=== PATIENT | female | born 1945 | race African-American/Black ===

== ENCOUNTER 2019-09-28 13:00 | Inpatient (IN) | payer MEDICARE ==
[~2019-09-28] VITALS: Ht 172.7 cm; Wt 78.1 kg
[2019-10-04] MEDS ORDERED: GLUCOPHAGE XR750 MG PO (10:46)
[2019-10-04] MEDS ORDERED: LIPITOR20 MG PO (10:47)
[2019-10-04] MEDS ORDERED: VITAMIN D5000 UNI1 (10:48)
[2019-10-04 12:21] LABS: CALCIUM 9.1 mg/dL (8.5-10.1); CARBON DIOXIDE 28.6 mmol/L (21.0-32.0); CREATININE - SERUM 1.2 mg/dL (0.6-1.3); POTASSIUM - SERUM 4.6 mmol/L (3.5-5.1)
[2019-10-05] VITALS (9 sets, daily range): BP systolic 121–154; BP diastolic 54–87; BMI 24.0
[2019-10-05] MEDS ORDERED: NEURONTIN 300300 MG PO (05:47)
[2019-10-05] MEDS ORDERED: HYDROCODON-ACE1 EA10 PO (05:48)
[2019-10-05] MEDS ORDERED: HYDRALAZINE HCL25 MG PO (05:49)
[2019-10-05] MEDS ORDERED: LISINOPRIL-HCT1 EAC8 PO (05:52)
[2019-10-05] MEDS ORDERED: MUPIROCIN22 GM TOPICAL (05:53)
[2019-10-05] MEDS ORDERED: ZOCOR40 MG PO (05:53)
[2019-10-05] MEDS ORDERED: KENALOG 0.1 % 115 GM (05:54)
[2019-10-05] MEDS ORDERED: KENALOG 0.1 % 115 GM TOPICAL (05:55)
[2019-10-05] MEDS ORDERED: TOBREX5 ML EACH EYE (05:56)
[2019-10-05] MEDS ORDERED: MAGNESIUM OXID250 MG PO (05:57)
[2019-10-05] MEDS ORDERED: BAYER CHEWABLE81 MG PO (05:58)
[2019-10-05 07:23] LABS: HEMATOCRIT 30.5 % (36.0-48.0); HEMOGLOBIN 9.7 g/dL (12-16); LYMPHOCYTES 49.8 % (15-50); MCH 28.4 pg (26.0-34.0); MCHC 31.8 g/dL (31.0-37.0); MCV 89.4 fL (80.0-100.0); MEAN PLATELET VOLUME 9.5 fL (7.4-10.4); NEUTROPHILS 40.9 % (40-80); PLATELET COUNT 248 10x3/uL (130-400); RBC 3.41 10x6/uL (4.00-5.40); RDW 12.8 % (11.5-14.5); WBC 6.8 10x3/uL (4.8-10.8)
--- NOTE | 2019-10-05 09:44 | NUR ---
PATIENT HAD CVL PLACED BY DR FRANCO WHEN BROUGHT IN TO ROOM, PATIENT POSITIONED IN REYNA HEADREST BY DR HALE ALL AREAS PADDED SECURED WITH NO IMPINGEMENTS, TWORLOS.
--- NOTE | 2019-10-05 12:50 | NUR ---
PT RECEIVED FROM OR AT THIS TIME. VSS. PT HR 85 NSR O2 SAT 94% VIA RA. BP 148/64 VIA R RADIAL A LINE WITH GOOD WAVEFORM. PT SEDATED UNABLE TO FOLLOW SIMPLE COMMANDS, WILL WAKE UP TO NAME. NURSE AT BEDSIDE. NO FAMILY PRESENT IN WAITING AREAS. WILL CONTINUE TO MONITOR
--- NOTE | 2019-10-05 19:20 | NUR ---
RECEIVED CARE OF PT, ASSESSMENT PER FLOWSHEET. PT ALERT, DISORIENTED TO TIME ONLY, HR SR ON CM, RT RADIAL A-LINE FLUSHED AND ZEROED-GOOD WAVE FORM NOTED, PANTOGRAPH II ENGRAVER BUTTON AND CALL LIGHT IN REACH, BED ALARM ON. SMALL AMT OF DRIED BLOOD NOTED ON CRANIAL DRESSING-MD AWARE, VSS.
--- NOTE | 2019-10-05 21:15 | NUR ---
PT GRANDSON IN FOR VISITATION, ALL QUESTIONS ANSWERED, PT CONVERSING IN NO APPARENT DISTRESS.
--- NOTE | 2019-10-05 23:15 | NUR ---
REASSESSMENT PER FLOWSHEET, NO SIGNIFICANT CHANGES NOTED AT THIS TIME. CONT POC
[2019-10-06] VITALS (18 sets, daily range): BP systolic 99–157; BP diastolic 52–96
--- NOTE | 2019-10-06 01:30 | NUR ---
PT RESTING IN BED WITH EYES CLOSED, VSS, CONT TO MONITOR.
--- NOTE | 2019-10-06 05:53 | NUR ---
PT RESTING IN BED WITH EYES CLOSED, VSS, CONT TO MONITOR.
--- NOTE | 2019-10-06 07:42 | NUR ---
UP IN BED AWAKE AT THIS TIME. DENIES ANY NEEDS. VSS. PT USES CLINIC MGR BUTTON FOR PAIN. NO ACUTE DISTRESS NOTED. WILL CONTINUE PLAN OF CARE.
--- NOTE | 2019-10-06 09:42 | NUR ---
FAMILY AT BEDSIDE. UPDATES PROVIDED. VSS. WILL CONTINUE PLAN OF CARE.
--- NOTE | 2019-10-06 11:43 | NUR ---
NO ACUTE DISTRESS NOTED. VSS. WILL CONTINUE PLAN OF CARE.
--- NOTE | 2019-10-06 13:27 | NUR ---
DR HALE HERE TO SEE PT, ORDERS RECIEVED ON PT. HE STATED TO KEEP PT IN ICU. NOTIFIED PHYSICIAN OF PTS LT SHOULDER DISCOMFORT, HE STATED HE IS AWARE OF THIS AND THE SHOULDER IS BETTER TODAY. VSS. NO ACUTE DISTRESS NOTED. WILL CONTINUE PLAN OF CARE.
--- NOTE | 2019-10-06 15:20 | NUR ---
NO ACUTE DISTRESS NOTED. LYING IN BED AWAKE AT THIS TIME. DENIES ANY NEEDS. VSS. WILL CONTINUE PLAN OF CARE.
--- NOTE | 2019-10-06 16:32 | NUR ---
UP IN BED AWAKE AT THIS TIME. VSS. NO ACUTE DISTRESS NOTED. PT DENIES ANY NEED. CALL LIGHT IN REACH. EDITORIAL PROJECT MANAGER BUTTON IN REACH. WILL CONTINUE PLAN OF CARE.
--- NOTE | 2019-10-06 19:41 | NUR ---
SHIFT ASSESSMENT COMPLETED AT THIS TIME. PATIENT STATES SHE CAN'T MOVE HER LEFT ARM DUE TO A FALL THAT OCCURED BEFORE SHE CAME TO THE HOSPITAL. SHE WAS AT HER DAUGHTERS HOUSE AND SHE FELL REQUIRING PARAMEDICS TO HAVE TO COME OUT AND PICK HER UP. PAGED DR HALE AT THIS TIME REGARDING INFORMATION OBTAINED. VSS CPOC PT DENIES NEEDS
--- NOTE | 2019-10-06 20:48 | NUR ---
[facility] CALLED BACK, STATED THEY HAVE BEEN TRYING TO REACH DR PACE AND ARE UNSUCCESFUL, THIS IS A NON EMERGENT ISSUE, WILL PASS INFORMATION TO DAY SHIFT
--- NOTE | 2019-10-06 21:23 | NUR ---
DR HALE RETURNED CALL, NEW ORDERS RECEIVED FOR THE AM. WILL SEE PATIENT TOMORROW
--- NOTE | 2019-10-06 22:30 | NUR ---
DRESSING CHANGE COMPLETED, SCANT MAROON BLOOD NOTED ON DRESSING. A-LINE D/C AT THIS TIME CATH INTACT. PATIENT TOLERATED WELL. CHG BATH COMPLETED, ICE APPLIED TO LEFT SHOULDER AREA. PT EDUCATION PROVIDED REGARDING RELIEVING PRESSURE TO PREVENT BEDSORES. VSS CPOC
--- NOTE | 2019-10-06 23:25 | NUR ---
REASSESSMENT COMPLETED SEE FLOWSHEET
[2019-10-07] VITALS (24 sets, daily range): BP systolic 93–136; BP diastolic 46–66
--- NOTE | 2019-10-07 01:15 | NUR ---
pt resting comfortably at this time
--- NOTE | 2019-10-07 03:26 | NUR ---
REASSESSMENT COMPLETED SEE FLOWSHEET
--- NOTE | 2019-10-07 06:28 | NUR ---
PT RESTING COMFORTABLY RECEIVED DRINK PER REQUEST. VSS CPOC
--- NOTE | 2019-10-07 08:19 | NUR ---
NOTED CONSULT FOR DR MAURICIO FOR PT C/O LT SHOOULDER PAIN WITH LIMITED RANGE OF MOTION, HOWEVER PT HAS MORE MOVEMENT WITH SHOULDER THAN NOTED YESTERDAY. DR MAURICIO HAS BEEN PAGED AND NOTIFIED OF THIS CONSULT, STATED [facility] IS ROUNDING FOR HIM TODAY. VSS. WILL CONTINUE PLAN OF CARE.
--- NOTE | 2019-10-07 10:49 | NUR ---
AWAKE IN ROOM WATCHING TV AT THIS TIME. VSS. NO ACUTE DISTRESS NOTED. CALL LIGHT IN REACH. WILL CONTINUE PLAN OF CARE.
--- NOTE | 2019-10-07 12:49 | NUR ---
SITTING UP IN CHAIR EATING LUNCH AT THIS TIME. VSS. NO ACUTE DISTRESS NOTED. DENIES ANY NEEDS. WILL CONTINUE PLAN OF CARE.
--- NOTE | 2019-10-07 14:42 | NUR ---
UP IN CHAIR. DENIES ANY NEEDS. VSS. NO ACUTE DISTRESS NOTED. WILL CONTINUE PLAN OF CARE.
--- NOTE | 2019-10-07 15:12 | NUR ---
PT AT REASSESSMENT IS UNABLE TO SQUEEZE LT HAND OR MOVE LT ARM. PT WAS ABLE TO LOAN PROCESSING SUPERVISOR WITH LT ARM DURING AM ASSESSMENTS. PT SCHEDULED FOR MRI, DR HALE STATES IS OKAY FOR PT TO GO TO MRI, DR HALE ALSO NOTIFIED THAT PT NOW UNABLE TO MOVE LT ARM.
--- NOTE | 2019-10-07 15:39 | NUR ---
MRI CALLED STATING THEY WOULD BE BY SHORTLY TO SEE PT.
--- NOTE | 2019-10-07 16:01 | NUR ---
PT LEFT FOR MRI AT THIS TIME WITH ASSIST FROM MRI AND NURSING STAFF. VSS. NO ACUTE DISTRESS NOTED. ASSISTED VIA WHEEL CHAIR. WILL CONTINUE PLAN OF CARE.
--- NOTE | 2019-10-07 16:40 | NUR ---
RETURNED WITH PT FROM MRI, ORDERS RECIEVED FROM DR HALE. UPDATES PROVIDED TO PT, PT ASSISTED BACK TO BED. DENIES ANY NEEDS. WILL CONTINUE PLAN OF CARE.
--- NOTE | 2019-10-07 17:41 | NUR ---
DR HALE HERE TO SEE PT, ORDERS RECIEVED. WHEN PHYSICIAN WAS AT BEDSIDE NOTED PT ABLE TO SLIGHTLY OPEN AND CLOSE FINGERS. VSS. WILL CONTINUE PLAN OF CARE.
--- NOTE | 2019-10-07 22:49 | NUR ---
1900-C/O SEVERE LEFT SHOULDER PAIN. MORPHINE LUDLOW MACHINE OPERATOR IN LAP. GAVE TO PATIENT ON REINFORCED EDUCATION IN LUDLOW MACHINE OPERATOR BUTTON. 2099- REPOSITIONED. STATES THAT HELPS WITH THE SHOULDER PAIN
--- NOTE | 2019-10-07 23:07 | NUR ---
REASSESSMENT COMPLETED. EYES CLOSED, WAKES TO VOICE. VSS.
[2019-10-08] VITALS (24 sets, daily range): BP systolic 95–155; BP diastolic 45–71; Ht 172.7 cm; Wt 78.1 kg
--- NOTE | 2019-10-08 01:00 | NUR ---
EYES CLOSED, WAKES TO VOICE. VSS. C/O ITCHING TO BACK TO RIGHT ARM. REPOSITIONED
--- NOTE | 2019-10-08 03:26 | NUR ---
REASSESSMENT COMPLETED. NO CHANGES. C/O ITCHING
--- NOTE | 2019-10-08 05:06 | NUR ---
EYES CLOSED, WAKES TO VOICE. VSS. NO CHANGES REPOSITIONED
--- NOTE | 2019-10-08 06:28 | NUR ---
CHG BATH GIVEN WITH COMPLETE LINEN CHANGE
--- NOTE | 2019-10-08 07:30 | NUR ---
REPORT RECEIVED. PT ALERT AND ORIENTED. INCISION TO RIGHT SIDE OF HEAD WITH DRESSING C/D/I. PT IS ON ROOM AIR. SHE HAS A ZHOU. SHE HAS A LEFT SUBCLAVIAN CENTRAL LINE WITH 1/2NS INFUSING AND A MORPHINE ACID PURIFICATION EQUIPMENT OPERATOR. PAIN TO LEFT SHOULDER. VSS. WILL CONTINUE TO MONITOR.
--- NOTE | 2019-10-08 08:41 | NUR ---
PT STATED SHE THREW UP SOME JELLO. GOWN AND LINENS CHANGED. WILL CONTINUE TO MONITOR.
--- NOTE | 2019-10-08 10:03 | NUR ---
SPEECH PATH IN WITH PT. PHYSICAL THERAPY ALSO IN WITH PT. TOLD THEM THAT DR HALE WANTS PT UP AND WALKING TODAY.
--- NOTE | 2019-10-08 11:00 | NUR ---
REASSESSMENT COMPLETE PER FLOW SHEET. VSS. PT RESTING COMFORTABLY WILL CONTINUE TO MONITOR
--- NOTE | 2019-10-08 13:00 | NUR ---
PT REQUEST TO GO BACK TO BED. PT PAGED AWAITING ARRIVAL.
--- NOTE | 2019-10-08 13:38 | NUR ---
OT NOTE: PT SITTING UP IN CHAIR. REPORTED THAT SHE HAS A HEADACHE AND WANTS TO LIE DOWN. PT WITH DIFFICULTY FOLLOWING COMMANDS FOR POSITIONING OF SIT TO STAND. REQUIRED TACTILE CUES TO SCOOT FEET BACK BEFORE STANDING AND FEET HAD TO BE BLOCKED BECAUSE SHE CONTINUALLY PUSHED THEM OUT. TRANSFER WITH MOD ASSIST X 2. PT REMAINS WITH L UE FLACID AND LIMITED MOVEMENT IN L LE. PERFORMED PROM EXS WITH L UE; SIT TO SUPINE WITH MOD ASSIST. RAISA MARES, OTR/L 115-140
--- NOTE | 2019-10-08 15:20 | NUR ---
REASSESSMENT COMPLETE PER FLOW SHEET. VSS. PT RESTING COMFORTABLY WILL CONTINUET Chris HUDSON
--- NOTE | 2019-10-08 16:15 | NUR ---
GLORIA TORRES AT BEDSIDE. GIVNE UPDATE. NO NEW CHANGES
--- NOTE | 2019-10-08 17:20 | NUR ---
ATE 50% DINNER. DENIES NEEDS WILL CNOTINUE TO MONITOR
--- NOTE | 2019-10-08 19:00 | NUR ---
A&OX4. SUPINE IN BED. NO MOVEMENT IN LUE, STRONG HAND PLANT MECHANIC IN RUE. REPORTS PAIN, ENCOURAGED TO USE HER REGIONAL BUSINESS MANAGER BUTTON. REQUESTS ICE CREAM, NO FURTHER NEEDS VOICED AT THIS TIME.
--- NOTE | 2019-10-08 21:00 | NUR ---
PTs SISTER CALLED, PT VERBALIZED CONSENT TO SHARE INFORMATION WITH HER. PT REPORTS PAIN IN ARMS, PRIMARILY IN LEFT SHOULDER. WARM PACK APPLIED. APPLIED LOTION TO ARMS. REPOSITIONS LUE. NO FURTHER NEEDS VOICED AT THIS TIME.
--- NOTE | 2019-10-08 21:22 | NUR ---
OT NOTE: PT REQUIRED MOD A FOR SUPINE TO SIT. PT EXHIBITED POOR TRUNK CONTROL WHILE SITTING AT EOB. PT REQUIRED MOD A TO SUSTAIN UPRIGHT POSITION WHILE PLACING GAIT BELT WHILE SEATED. PT COMPLETED SIT TO STAND WITH MOD A X2. PT COMPLETED BED TO CHAIR TSF WITH MOD/MAX A X2. PT EXHIBITED DECREASED AROM ON LEFT SIDE. PT EXHIBITED POOR AWARENESS OF LEFT SIDE WEAKNESS. [phone] KAMERON [place] C[place]
--- NOTE | 2019-10-08 22:46 | NUR ---
SUPINE IN BED, EYES CLOSED, RESPIRATIONS EVEN/NON-LABORED. CTM.
[2019-10-09] VITALS (9 sets, daily range): BP systolic 99–160; BP diastolic 52–78
--- NOTE | 2019-10-09 01:00 | NUR ---
PT REPORTS PAIN, REMINDED PT SHE HAS ORE BRIDGE OPERATOR AND THE BUTTON IS LIT UP FOR NEXT DOSE. PT REQUESTS FOR NURSES TO REMIND HER SHE HAS BUTTON WHEN CHECKING ON HER. CTM.
--- NOTE | 2019-10-09 03:00 | NUR ---
SUPINE IN BED, PT REQUESTS WE PUT HER CAP BACK ON TO PREVENT HER FROM SCRATCHING HEAD AT SURGICAL SITE. NO FURTHER NEEDS VOICED, CTM.
--- NOTE | 2019-10-09 04:00 | NUR ---
I have reviewed this patient and I concur with the Shift Assessment completed by the Licensed Practical Nurse today this shift.
--- NOTE | 2019-10-09 05:00 | NUR ---
SUPINE IN BED, RESPIRATIONS EVEN AND NON-LABORED. VS STABLE, NO S/SX OF DISTRESS, CTM.
--- NOTE | 2019-10-09 07:00 | NUR ---
REPORT RECEIVED. ASSESSMENT COMPLETE PER FLOW SHEET. VSS. PT RESTING COMFORTABLY WILL CONTINUE TO MONITOR
--- NOTE | 2019-10-09 12:00 | NUR ---
RECEIVED PATIENT FROM ICU. ALERT AND ORIENTED. NO C/O PAIN. NO S/S OF ACUTE DISTRESS NOTED. LEFT SUBCLAVIAN WITH 1/2 NS INFUSING @ 50ML/HR AND MORPHINE MARKETING RESEARCH INTERN. SITTING UP IN CHAIR. DENIES ANY NEEDS AT THIS TIME. CALL LIGHT IN REACH. WILL CONTINUE TO MONITOR.
--- NOTE | 2019-10-09 12:22 | NUR ---
OT NOTE: PT RESTING BUT AROUSED TO NAME. BED MOB WITH MOD ASSIST; EXTENSIVE EDUCATION ON USE OF QUAD CANE; PERFORMED NUMEROUS SITTING AND STANDING BALANCE ACT. PT CONT TO LEAN BACKWARDS IN STANDING AND UNABLE TO ORIENT TO MIDLINE NOR CAN SHE FINE AGONAL CENTER OF BALANCE; REQUIRED EXTENSIVE PHYSICAL CUES TO BRING HIPS FORWARD, AND EVEN STILL, PT WITH POSTERIOR PELVIC TILT. PT WITH C/O L UE PAIN ( WORSE THAN YESTERDAY) PT REPORTING PAIN WHEN THERAPIST IS JUST TOUCHING L UE. PERFORMED WT BEARING TASKS BUT REPORTED THAT IT WAS TOO PAINFUL; GENTLE PROM ; RE TESTED ALL ROM/STRENGTH.. L LE IS MUCH IMPROVED ( STILL UNCOORDINATED), BUT L UE REMAINS FLACID. TRANSFERS WITH MAX ASSIST FROM BED TO CHAIR; PT VERY ANXIOUS ABOUT FALLING DURING TRANSFER TODAY. RAISA MARES, OTR/L
[2019-10-10] VITALS: BP 127/45
--- NOTE | 2019-10-10 03:19 | NUR ---
I have reviewed this patient and I concur with the Shift Assessment completed by the Licensed Practical Nurse today this shift.
[2019-10-10 04:00] VITALS: BP 139/61
--- NOTE | 2019-10-10 04:04 | NUR ---
REPORTS OF PAIN AND ITCHING TO HEAD AROUND YA AND SOME MILD PAIN STARTING TO LUE.. CLEANSED SCALP AND PAT DRY. PT REPORTS RELIEF. CTM.
--- NOTE | 2019-10-10 08:10 | NUR ---
resting in bed, no distress noted, eyes closed, iv infusing, gmat instructor in place, cont to monitor pain and suture line for infection
[2019-10-10 08:21] VITALS: BP 126/56
--- NOTE | 2019-10-10 09:51 | NUR ---
Rehab Note- Received VM from Suman with [facility] that an acute inpatient rehab stay has been approved for 7 days, Auth #[id number]. Follow up will be with Lex @ [phone] Ext [phone], fax #[phone]. Will notify of auth approval. Thank you for this referral! Shelby Sampson RN Clinical Liaison, [facility] Rehab
[2019-10-10 11:49] VITALS: BP 116/56
[2019-10-10] MEDS ORDERED: NEURONTIN 300300 MG PO (14:23)
[2019-10-10] MEDS ORDERED: DILANTIN PO (14:25)
[2019-10-10] MEDS ORDERED: MEDROL DOSE PACK4 MG PO (14:27)
--- NOTE | 2019-10-10 15:00 | MORECARE ---
CASE MANAGEMENT DISCHARGE SUMMARY PATIENT: LENNIE HU UNIT: [id number] ADM DATE: 10/05/19 AGE: 73 : 43 SEX: F ROOM/BED: D.2211 AUTHOR: FELICIA CLEARY PHYSICIAN: REFERRING PHYSICIAN: MARILY HALE MD DATE OF SERVICE: 10/10/19 Discharge Plan Patient Name: LENNIE HU Facility: [facility]:[place] : 1945 Planned Disposition: Inpatient Rehab Anticipated Discharge Date: Discharge Date: Expected LOS: Initial Reviewer: [email or web address] Initial Review Date: 10/05/2019 Generated: 10/10/19 3:59 pm Comments DCP- Discharge Planning Updated by [email or web address]: Tamara Bhat on 10/10/19 1:[address] Patient Name: LENNIE HU Admission Status: Elective Accout number: [id number] Admission Date: 10-05-2019 : 1945 Admission Diagnosis:OTHER SPECIFIED ARTHRITIS, LEFT SHOULDER Attending: MARILY HALE Current LOS: 5 Anticipated DC Date: Planned Disposition: Inpatient Rehab Primary Insurance: [facility] MEDICARE SOLUTIONS Discharge Planning Comments: CM met with patient to complete initial dc planning assessment. CM educated patient on the CM role and verbal consent given by patient to complete assessment. Patient lives at home with her adult daughter and granddaughter where she was independent with her care. At discharge patient plans to return home and feels this is a safe discharge. Xi, her daughter will be her tank driver home. CM discussed availability of home health, rehab services, and medical equipment. She is agreeable to go to inpatient rehab at [facility], [place] signed. IMM also signed. I will call her daughter and let her know about rehab. Patient denied known discharge needs at this time. CM will continue to follow and will assist as needed with dc plans/needs. Scientific Photographer: Tamara Bhat DCPIA - Discharge Planning Initial Assessment Updated by [email or web address]: Tamara Bhat on 10/10/19 2:57 pm * Is the patient Alert and Oriented? Yes * How many steps to enter\exit or inside your home? * PCP ANKIT GRANADOS * [facility] * Preadmission Environment Home with Family * ADLs Independent * Equipment Other * Other Equipment WALKING STICK * List name and contact numbers for known caregivers / representatives who currently or will assist patient after discharge: XI (DAUGHTER) [phone] * Verbal permission to speak to the caregivers and representatives has been obtained from the patient. Yes * Community resources currently utilized None * Additional services required to return to the preadmission environment? Yes * Can the patient safely return to the preadmission environment? Yes * Has this patient been hospitalized within the prior 30 days at any hospital? No Patient Name: LENNIE HU Page [phone] at 1500 All edits/amendments must be made on the electronic document DICTATION DATE: 10/10/19 1500 ECHO VASC TECH: STEPHANE 10/10/19 1500 RPT#: [id number] DC DATE: STATUS: ADM IN [facility] [address] [place] [address] END OF REPORT
--- NOTE | 2019-10-10 15:18 | NUR ---
OT NOTE: PT EXHIBITED POOR TRUNK STABILITY. PT EXHIBITED IMPAIRED AROM OF LUE. PT COMPLETED SUPINE TO SIT WITH MAX A. PT COMPLETED EOB SITTING WITH MAX A. PT ATTEMPTED TO FACILITATE POSTURAL CONTROL. PT REQUIRED EXTENSIVE VERBAL CUES AND MOD A. PT COMPLETED LUE POSITIONING TO FACILITATE RETURN OF FUNCTION. PT EDUCATED NOT TO MOVE LUE BY PULLING ON 1 FINGER. PT TO GRASP AT ELBOW OR FORARM TO ASSIST LUE MOVEMENT. PT EDUCATED ON SELF POSITONING TO FACILTIATE JOINT INTEGRITY. [phone] THANK YOU,PATITO BEARDEN
--- NOTE | 2019-10-10 15:56 | MORECARE ---
CASE MANAGEMENT DISCHARGE SUMMARY PATIENT: LENNIE HU UNIT: [id number] ADM DATE: 10/05/19 AGE: 73 : 44 SEX: F ROOM/BED: D.2211 AUTHOR: FELICIA CLEARY PHYSICIAN: REFERRING PHYSICIAN: MARILY HALE MD DATE OF SERVICE: 10/10/19 Discharge Plan Patient Name: LENNIE HU Facility: [facility]:[place] : 1945 Planned Disposition: Inpatient Rehab Anticipated Discharge Date: Discharge Date: Expected LOS: Initial Reviewer: [email or web address] Initial Review Date: 10/05/2019 Generated: 10/10/19 4:56 pm Comments DCP- Discharge Planning Updated by [email or web address]: Tamara Bhat on 10/10/19 2:[address] I CALLED XI TO LET HER KNOW THAT HER MOM WAS DISCHARGING TO INPATIENT REHAB DCP- Discharge Planning Updated by [email or web address]: Tamara Bhat on 10/10/19 1:[address] Patient Name: LENNIE HU Admission Status: Elective Accout number: [id number] Admission Date: 10-05-2019 : 1945 Admission Diagnosis:OTHER SPECIFIED ARTHRITIS, LEFT SHOULDER Attending: MARILY HALE Current LOS: 5 Anticipated DC Date: Planned Disposition: Inpatient Rehab Primary Insurance: [facility] MEDICARE SOLUTIONS Discharge Planning Comments: CM met with patient to complete initial dc planning assessment. CM educated patient on the CM role and verbal consent given by patient to complete assessment. Patient lives at home with her adult daughter and granddaughter where she was independent with her care. At discharge patient plans to return home and feels this is a safe discharge. Xi, her daughter will be her freight delivery driver home. CM discussed availability of home health, rehab services, and medical equipment. She is agreeable to go to inpatient rehab at [facility], [place] signed. IMM also signed. I will call her daughter and let her know about rehab. Patient denied known discharge needs at this time. CM will continue to follow and will assist as needed with dc plans/needs. Tube Making Machine Operator: Tamara Bhat DCPIA - Discharge Planning Initial Assessment Updated by [email or web address]: Tamara Bhat on 10/10/19 2:57 pm * Is the patient Alert and Oriented? Yes * How many steps to enter\exit or inside your home? * PCP ANKIT GRANADOS * [facility] * Preadmission Environment Home with Family * ADLs Independent * Equipment Other * Other Equipment WALKING STICK * List name and contact numbers for known caregivers / representatives who currently or will assist patient after discharge: XI (DAUGHTER) [phone] * Verbal permission to speak to the caregivers and representatives has been obtained from the patient. Yes * Community resources currently utilized None * Additional services required to return to the preadmission environment? Yes * Can the patient safely return to the preadmission environment? Yes * Has this patient been hospitalized within the prior 30 days at any hospital? No Coverage Notice Reviewer: [id number] Howard Bhat Notice Issued Date-Time: 10/10/2019 14:50 Notice Type: IM Discharge Notice Notice Delivered To: Patient Relationship to Patient: Lead Mechanic Name: Delivery Method: HAND - Hand Delivered Katy Days: Prior Verbal Notification: Recipient Understood Notice: Yes Recipient Signature: Yes Med Rec Note Co-signed by Attending: Coverage Notice Comment: IMM SERVED AND EXPLAINED Last DP export: 10/10/19 2:00 p Patient Name: LENNIE HU Page [phone] at 1556 All edits/amendments must be made on the electronic document DICTATION DATE: 10/10/191555 PAVING CREW FOREMAN: STEPHANE 10/10/191555 RPT#: [id number] DC DATE: STATUS: ADM IN [facility] [address] [place] [address] END OF REPORT
--- NOTE | 2019-10-10 16:08 | NUR ---
OT NOTE: EXT TRAINING FOR BED MOB AND BALANCE TRAINING WHILE SITTING ON EOB. PT WAS ABLE TO ORIENT TO MIDLINE, HOWEVER, UNABLE TO MAINTAIN STATIC SITTING FOR GREATER THAN 10 SECONDS WITHOUT PHYSICAL ASSIST. EDUCATED ON CARE OF L UE AND PROPER WAY TO MOVE L UE; EDUCATED ON SROM EXS; AROM EXS FOR B LES; ABLE TO PERFORM FEEDING WITH SET UP AND CONSUMED APPROX 50% OF LUNCH. NO HEADACHE REPORTED TODAY; MAX ASSIST WITH SIT TO STAND AND STANDING BALANCE. RAISA MARES, OTR/L [phone]
[2019-10-10] MEDS ORDERED: HYDROCODON-ACE1 EAC7 PO (16:15)
--- NOTE | 2019-10-10 16:21 | NUR ---
REVIEWED DC ORDERS WITH PT, DC ZHOU, BRITTANY WELL, REMOVED CENTRAL LINE, TIP INTACT, BRITTANY WELL, COVERED WITH GAUZE DSG, DC REGULATOR PIN INSERTER, MORPHINE WASTED IN OMNICELL
--- NOTE | 2019-10-10 17:00 | NUR ---
TAKEN TO REHAB PER WC ALONG WITH DC PAPERS, BRITTANY WELL
--- NOTE | 2019-10-10 17:14 | NUR ---
REPORT CALLED TO ZAINAB IN REHAB UNIT
--- NOTE | 2019-10-12 11:01 | OP ---
PATIENT NAME: LENNIE HU MEDICAL RECORD: [id number] :43 LOCATION:D.[id number] ADMISSION DATE:10/05/19 SURGEON: MARILY HALE MD DATE OF OPERATION: 10/05/2019 PREOPERATIVE DIAGNOSIS: Right frontoparietal en-plaque meningiomas. POSTOPERATIVE DIAGNOSIS: Right frontoparietal en-plaque meningiomas. PROCEDURE: Right frontoparietal craniotomy with navigation for resection of right frontoparietal meningioma with CUSA and Solitario navigation. SURGEON: Marily Hale MD RN DELIVERY: Jamarcus Huang APN DESCRIPTION AND TECHNIQUE: After induction of general endotracheal anesthesia, the patient was placed on Gaitan head pins. After placing the patient in Gaitan head pins, registration took place with Click Contact navigation and fiducial markers and the patient tracking device from Click Contact. After sterile prep and drape, a bicoronal incision was carried out from the right frontotemporal base just above the zygoma to the opposite parietal boss. Carine clips were applied to the scalp for hemostasis. Several sunny holes were created along the midline on the right side and then peripherally along with lateral extent of the tumor using a Click Contact navigation to define the borders of the tumor. These sunny holes were connected with a Midas-Tad drill using a side cutting sunny. The skull flap was elevated without difficulty. The dura was opened in a horseshoe based fashion based on the midline. There was obvious tumor attached to the dura. This was dissected free with bipolar cautery and sharp dissection. The dural flap was reflected all the way to the midline. Next, the dura was removed and sent to pathology for diagnosis. There was obvious tumor involvement within the dura. The meningioma was debulked using a CUSA aspirator. Several specimens were sent to pathology for diagnosis. Approximately 90% tumor was removed using CUSA aspirator. The meningioma tumor was obviously adherent to the robert; therefore, robert was left intact on the brain with a remnant tumor attached to the robert mater. Following this, meticulous hemostasis was maintained throughout the wound. The dura was replaced with Duragen suturable patch. Meticulous hemostasis was maintained throughout the wound. The skull flap was reattached with titanium plates and screws. The scalp was reapproximated with interrupted 2-0 Vicryl suture. The skin was closed with anton. A sterile dressing was applied to the wound. The patient was awakened in good condition, taken to recovery. Jamarcus Huang helped throughout the procedure with retraction, hemostasis, and mechanical portions of the procedure. The patient was awakened in good condition and taken to recovery. All counts were reported as correct. Estimated blood loss was minimal. TRANSINT:[id number] Voice Confirmation ID: [id number] DOCUMENT ID: [id number] OPERATIVE REPORT [id number] LENNIE HU, MARILY VÁZQUEZ at 1101 CC: [id number] DICTATION DATE: 10/09/19 1825 AIRFIELD MANAGER: 10/10/19 0002 DIS IN 10/10/19 [facility] [address] [place] [address]
--- NOTE | 2019-10-13 14:58 | MORECARE ---
CASE MANAGEMENT DISCHARGE SUMMARY PATIENT: LENNIE HU UNIT: [id number] ADM DATE: 10/05/19 AGE: 73 : 44 SEX: F ROOM/BED: D.2211 AUTHOR: FELICIA CLEARY PHYSICIAN: REFERRING PHYSICIAN: MARILY HALE MD DATE OF SERVICE: 10/13/19 Discharge Plan Patient Name: LENNIE HU Facility: [facility]:[place] : 1945 Planned Disposition: Inpatient Rehab Anticipated Discharge Date: Discharge Date: 10/10/2019 Expected LOS: Initial Reviewer: [email or web address] Initial Review Date: 10/05/2019 Generated: 10/13/19 3:58 pm Comments DCP- Discharge Planning Updated by [email or web address]: Tamara Bhat on 10/10/19 2:[address] I CALLED XI TO LET HER KNOW THAT HER MOM WAS DISCHARGING TO INPATIENT REHAB DCP- Discharge Planning Updated by [email or web address]: Tamara Bhat on 10/10/19 1:[address] Patient Name: LENNIE HU Admission Status: Elective Accout number: [id number] Admission Date: 10-05-2019 : 1945 Admission Diagnosis:OTHER SPECIFIED ARTHRITIS, LEFT SHOULDER Attending: MARILY HALE Current LOS: 5 Anticipated DC Date: Planned Disposition: Inpatient Rehab Primary Insurance: [facility] [employer] Discharge Planning Comments: CM met with patient to complete initial dc planning assessment. CM educated patient on the CM role and verbal consent given by patient to complete assessment. Patient lives at home with her adult daughter and granddaughter where she was independent with her care. At discharge patient plans to return home and feels this is a safe discharge. Xi, her daughter will be her equipment driver home. CM discussed availability of home health, rehab services, and medical equipment. She is agreeable to go to inpatient rehab at [facility], [place] signed. IMM also signed. I will call her daughter and let her know about rehab. Patient denied known discharge needs at this time. CM will continue to follow and will assist as needed with dc plans/needs. Motor Tune Up Specialist: Tamara Bhat DCPIA - Discharge Planning Initial Assessment Updated by [email or web address]: Tamara Bhat on 10/10/19 2:57 pm * Is the patient Alert and Oriented? Yes * How many steps to enter\exit or inside your home? * PCP [facility]RANAD[facility] * [facility] * Preadmission Environment Home with Family * ADLs Independent * Equipment Other * Other Equipment WALKING STICK * List name and contact numbers for known caregivers / representatives who currently or will assist patient after discharge: XI (DAUGHTER) [phone] * Verbal permission to speak to the caregivers and representatives has been obtained from the patient. Yes * Community resources currently utilized None * Additional services required to return to the preadmission environment? Yes * Can the patient safely return to the preadmission environment? Yes * Has this patient been hospitalized within the prior 30 days at any hospital? No Coverage Notice Reviewer: [email or web address] Bhat Notice Issued Date-Time: 10/10/2019 14:50 Notice Type: IM Discharge Notice Notice Delivered To: Patient Relationship to Patient: Physicians Assistant Name: Delivery Method: HAND - Hand Delivered Katy Days: Prior Verbal Notification: Recipient Understood Notice: Yes Recipient Signature: Yes Med Rec Note Co-signed by Attending: Coverage Notice Comment: IMM SERVED AND EXPLAINED Reviewer: [id number] Bhat Notice Issued Date-Time: 10/10/2019 14:50 Notice Type: Patient Choice Letter Notice Delivered To: Patient Relationship to Patient: Physicians Assistant Name: Delivery Method: HAND - Hand Delivered Kat[place] Days: Prior Verbal Notification: Recipient Understood Notice: Yes Recipient Signature: Yes Med Rec Note Co-signed by Attending: Coverage Notice Comment: [facility] Last DP export: 10/10/19 2:56 p Patient Name: LENNIE HU Page [id number] at 1458 All edits/amendments must be made on the electronic document DICTATION DATE: 10/13/198 HEALTH SERVICES ADMINISTRATOR: STEPHANE 10/13/19 1458 RPT#: [id number] DC DATE:10/10/19 STATUS: DIS IN [facility] [address] [place] [address] END OF REPORT
== END 2019-10-10 17:00 | DRG 27 ==
LOC: D.ICU 10-05 05:25 → D.SDCHOLD 10-05 05:25 → D.M2 10-05 07:30 → D.ICU 10-05 12:38 → D.MS 10-09 12:08
PROVIDERS: Anesthesiology; ADMIT Neurological Surgery; ATTEND Neurological Surgery
PROC: 00B10ZZ Excision of Cerebral Meninges, Open Approach (ICD-10-PCS; 2019-10-05)
PROC: 3E0U33Z Introduction of Anti-inflammatory into Joints, Percutaneous Approach (ICD-10-PCS; principal; 2019-10-08)
DX: D32.0 Benign neoplasm of cerebral meninges (principal); M13.812 Other specified arthritis, left shoulder; M75.102 Unspecified rotator cuff tear or rupture of left shoulder, not specified as traumatic; M25.512 Pain in left shoulder

== ENCOUNTER 2019-10-10 17:03 | Inpatient (IN) | payer MEDICARE ==
[~2019-10-10] VITALS: Ht 170.2 cm; Wt 77.6 kg
[~2019-10-10 17:03] MED LIST: BAYER CHEWABLE81 MG PO; DILANTIN PO; GLUCOPHAGE XR750 MG PO; HYDRALAZINE HCL25 MG PO; HYDROCODON-ACE1 EA10 PO; HYDROCODON-ACE1 EAC7 PO; KENALOG 0.1 % 115 GM; KENALOG 0.1 % 115 GM TOPICAL; LIPITOR20 MG PO; LISINOPRIL-HCT1 EAC8 PO; MAGNESIUM OXID250 MG PO; MEDROL DOSE PACK4 MG PO; MUPIROCIN22 GM TOPICAL; NEURONTIN 300300 MG PO; TOBREX5 ML EACH EYE; VITAMIN D5000 UNI1; ZOCOR40 MG PO
--- NOTE | 2019-10-10 17:40 | NUR ---
PT RECIEVED FROM ACUTE CARE TO ROOM 1114B.ORIENTED TO ROOM AND SURROUNDINGS.CL IN REACH.
--- NOTE | 2019-10-10 18:45 | NUR ---
RECEIVED PT LYING IN BED AWAKE. ALERT AND ORIENTED X3. REORIENTED TO TIME. DENIES ANY PAIN OR NEEDS. DRESSING TO LEFT SUBCLAVIAN HX CVL. NO IV OR O2 NOTED. CALL LIGHT AND WATER WITHIN REACH. FALL PRECAUTIONS IN PLACE. CPOC
--- NOTE | 2019-10-10 23:20 | NUR ---
QUIET HOURS. PT LYING IN BED EYES CLOSED RESTING. HOB ELEVATED. RR EVEN AND UNLABORED. CALL LIGHT WITHIN REACH. FALL PRECAUTIONS IN PLACE. CPOC
[2019-10-10 23:44] VITALS: BP 132/54; BMI 26.9
--- NOTE | 2019-10-11 02:07 | NUR ---
PT LYING IN BED ON RIGHT SIDE EYES CLOSED RESTING. RR EVEN AND UNLABORED. CALL LIGHT WITHIN REACH. CPOC
--- NOTE | 2019-10-11 04:51 | NUR ---
PT LYING IN BED EYES CLOSED RESTING. HOB ELEVATED. NO ACUTE CHANGES IN CONDITION NOTED THIS SHIFT. CALL LIGHT WITHIN REACH. CPOC
--- NOTE | 2019-10-11 05:45 | NUR ---
INCONTINENCE CARE PROVIDED. LARGE URINE INCONTINENCE. COMPLETE LINEN CHANGE. NO OTHER NEEDS VOICED. DENIES ANY PAIN. CALL LIGHT WITHIN REACH. FALL PRECAUTIONS IN PLACE. CPOC
[2019-10-11 07:27] VITALS: Ht 170.2 cm; Wt 77.6 kg
--- NOTE | 2019-10-11 08:00 | NUR ---
SITTING UP IN BED EATING BREAKFAST, DENIES ANY NEEDS AT THIS TIME, C/L AND FLUIDS IN REACH.
[2019-10-11 09:48] VITALS: BP 126/65
--- NOTE | 2019-10-11 11:57 | NUR ---
SITTING UP IN W/C, DENIES ANY NEEDS AT THIS TIME, C/L AND FLUIDS IN REACH.
[2019-10-11 12:30] LABS: ANION GAP 10.2 mmol/L (8-16); CALCIUM 9.3 mg/dL (8.5-10.1); CARBON DIOXIDE 29.2 mmol/L (21.0-32.0); CREATININE - SERUM 1.2 mg/dL (0.6-1.3); POTASSIUM - SERUM 4.4 mmol/L (3.5-5.1)
[2019-10-11 12:34] LABS: BASOPHILS 0.3 % (0-2); EOSINOPHILS 2.5 % (0-7); HEMATOCRIT 29.2 % (36.0-48.0); HEMOGLOBIN 9.2 g/dL (12-16); IMMATURE GRANULOCYTES 0.3 % (0-5); LYMPHOCYTES 23.9 % (15-50); MCHC 31.5 g/dL (31.0-37.0); MCV 88.8 fL (80.0-100.0); MONOCYTES 8.3 % (2-11); NEUTROPHILS 64.7 % (40-80); PLATELET COUNT 216 10x3/uL (130-400); RBC 3.29 10x6/uL (4.00-5.40); RDW 12.8 % (11.5-14.5); WBC 7.3 10x3/uL (4.8-10.8)
--- NOTE | 2019-10-11 14:04 | NUR ---
THIS NURSE WAS IN PATIENTS ROOM AND PT. BEGAN TO START HAVING SEIZURE SYPMTONS, PT. STATED THAT THIS HAS HAPPENED BEFORE. PT. BEGAN TO HAVE FULL SEIZURE AND WAS UNRESPONSIVE. RAPID RESPONSE CALLED AT 1330. IV STARTED 2MG OF ATIVAN GIVEN. SEIZURE SUBSIDED AT 1342. FAMILY CALLED AND NOTIFIED AT 1400. PATIENT NOW RESTING WITH EYES CLOSED, RESP EVEN AND UNLABORED, NO S/S OF DISTRESS NOTED. C/L IN REACH. WILL MONITOR PATIENT FREQUENTLY.
--- NOTE | 2019-10-11 14:16 | NUR ---
VITAL SIGNS: B/P-128/68, PULSE 98 AND O2 95% ROOM AIR.
--- NOTE | 2019-10-11 14:54 | NUR ---
PATIENT RESTING IN BED WITH EYES CLOSED, RESP EVEN AND UNLABORED, NO S/S OF DISTRESS NOTED, C/L AND FLUIDS IN REACH. WILL CONTINUE TO MONITOR.
--- NOTE | 2019-10-11 14:57 | NUR ---
PATIENT ADMITTED TO REHAB FROM ACUTE FLOOR. HER PCP IS DR. ANKIT CHOWDARY IN [place]. DISCHARGE PLANS ARE FOR PATIENT TO RETURN TO HER HOME WITH FAMILY. HER [facility] WILL TRANSPORT HER HOME. WILL CONTINUE TO FOLLOW WITH PATIENT.
--- NOTE | 2019-10-11 16:00 | NUR ---
RESTING IN BED WITH EYES CLOSED, NO S/S OF DISTRESS NOTED, RESP EVEN AND UNLABORED, C/L AND FLUIDS IN REACH.
--- NOTE | 2019-10-11 19:25 | NUR ---
RECEIVED PT LYING IN BED PROPPED UP ON LEFT SIDE USING PILLOWS. PT APPEARS TO BE ASLEEP. EASILY AROUSED WITH STIMULI. NO SIGNS OF ACUTE DISTRESS NOTED. DENIES ANY PAIN. NO NEEDS VOICED. VS STABLE. CALL LIGHT AND WATER WITHIN REACH. FALL PRECAUTIONS IN PLACE. CPOC
[2019-10-11 21:17] VITALS: BP 177/79
--- NOTE | 2019-10-12 01:19 | NUR ---
QUIET HOURS. PT LYING IN BED ON LEFT SIDE EYES CLOSED RESTING. RR EVEN AND UNLABORED. CALL LIGHT WITHIN REACH. FALL PRECAUTIONS IN PLACE. CPOC
[2019-10-12] MEDS ORDERED: DILANTIN100 MG PO (02:46)
--- NOTE | 2019-10-12 03:53 | NUR ---
PT LYING IN BED SUPINE EYES CLOSED RESTING. HOB ELEVATED. RR EVEN AND UNLABORED. CALL LIGHT WITHIN REACH. CPOC
--- NOTE | 2019-10-12 05:37 | NUR ---
PT LYING IN BED C/O 6/10 ACHING HEAD AND BLE PAIN. ADMININSTERED NORCO 5/325MG AND NEURONTIN 300MG PER ORDER. NO ACUTE CHANGES IN CONDITION THIS SHIFT. NO OTHER NEEDS VOICED. POSITIONED PT ON LEFT SIDE HOB ELEVATED TO 15 DEGREES. CALL LIGHT AND WATER WITHIN REACH. FALL PRECAUTIONS IN PLACE. CPOC
[2019-10-12 07:23] LABS: BASOPHILS 0.2 % (0-2); EOSINOPHILS 1.9 % (0-7); HEMATOCRIT 27.3 % (36.0-48.0); HEMOGLOBIN 8.7 g/dL (12-16); IMMATURE GRANULOCYTES 0.2 % (0-5); LYMPHOCYTES 27.6 % (15-50); MCH 28.1 pg (26.0-34.0); MCHC 31.9 g/dL (31.0-37.0); MCV 88.1 fL (80.0-100.0); MEAN PLATELET VOLUME 9.5 fL (7.4-10.4); MONOCYTES 8.3 % (2-11); NEUTROPHILS 61.8 % (40-80); PLATELET COUNT 212 10x3/uL (130-400); RDW 12.9 % (11.5-14.5); WBC 8.3 10x3/uL (4.8-10.8)
[2019-10-12 07:46] LABS: ANION GAP 11.5 mmol/L (8-16); CALCIUM 9.2 mg/dL (8.5-10.1); CARBON DIOXIDE 27.5 mmol/L (21.0-32.0)
--- NOTE | 2019-10-12 07:57 | NUR ---
RESTING IN BED WITH EYES CLOSED, NO S/S OF DISTRESS NOTED, RESP EVEN AND UNLABORED, C/L AND FLUIDS IN REACH.
[2019-10-12 07:58] VITALS: BP 122/52
--- NOTE | 2019-10-12 12:30 | NUR ---
SITTING UP IN BED EATING LUNCH, DENIES ANY NEEDS AT THIS TIME, C/L AND FLUIDS IN REACH.
--- NOTE | 2019-10-12 16:12 | NUR ---
RESTING IN BED WITH EYES CLOSED, UP WITH THERAPY EARLIER, NO S/S OF DISTRESS NOTED, RESP EVEN AND UNLABORED, C/L AND FLUIDS IN REACH.
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
[2019-10-12 19:30] VITALS: BP 114/53
--- NOTE | 2019-10-12 20:00 | NUR ---
AWAKE AND ALERT. RESTING IN BED WITH RESPIRATIONS UNLABORED. LEFT ARM FLACCID. LEFT LEG WEAK BUT SHE CAN MOVE IT SLIGHTLY. CRAINIOTOMY INCISION WITH YA HEALING WELL WITH NO DRAINAGE. NO ACUTE DISTRESS NOTED. CALL LIGHT IN REACH.
--- NOTE | 2019-10-13 00:10 | NUR ---
RESTING IN BED WITH RESPIRAITONS UNALBORED. NO DISTRESS NOTED.
--- NOTE | 2019-10-13 05:08 | NUR ---
QUIET HOURS. NO ACUTE CHANGES IN CONDITION THIS SHIFT. RESTING IN BED WITH NO DISTRESS NOTED. CALL LIGHT IN REACH.
[2019-10-13 08:00] VITALS: BP 101/59
--- NOTE | 2019-10-13 08:00 | NUR ---
SHIFT ASSMT COMPLETED.
--- NOTE | 2019-10-13 12:00 | NUR ---
SITTING UP EATING IN WC.
--- NOTE | 2019-10-13 16:00 | NUR ---
PT HAD SEIZURE,MILD TWITCHING AND JERKING,LASTING <5 MINS.VITAL SIGNS TAKEN AND NOTED TO BE STABLE.WILL CONTINUE TO CLOSELY OBSERVE.
--- NOTE | 2019-10-13 18:50 | NUR ---
CALLED TO ROOM PER CERAMICS ENGINEER WHO REPORTED PATIENT WAS HAVING A SEIZURE. NOTED PATIENT HAVING A SEIZURE WITH MODERATE SHAKING IN HEAD, ARMS AND LEGS. SEIZURE LASTED 4 MINUTES. PATIENT RECOVED FULLY AND TALKATIVE. DID NOT SLEEP BUT STATES THEY MADE HER TIRED. DR FRIEND CALLED PER DAY SHIFT NURSE AND NEW ORDER FOR ATIVAN PO OBTAINED. STATE PILOT ALSO NOTIFED OF PT CONDITION.
--- NOTE | 2019-10-13 19:15 | NUR ---
DR FRIEND CALLED BACK TO CLARIFY ORDER. HE ALSO ORDERED A STAT DILATIN LEVEL, TO INCREASE DILANTIN PO TO 800MG, AND TO MAKE SURE DR HA WAS CONSULTED. DR HA DID HIS CONSULT ON 10/12/19.
--- NOTE | 2019-10-13 19:40 | NUR ---
ATIVAN 1MG GIVEN PO. RESPIRATIONS UNLAORED. WILL CONTINUE TO MONITOR.
--- NOTE | 2019-10-13 20:15 | NUR ---
NEW ORDER FOR ATIVAN 0.5MG IV PRN SEIZURES PER DR FRIEND ADDED. NO SEIZURE ACTIVITY AT THIS TIME. TALKATIVE AND CHEERFUL.
[2019-10-13 20:28] VITALS: BP 146/76
--- NOTE | 2019-10-13 21:00 | NUR ---
INCONTINENT OF URINE. CLEANED AND DRIED AND REPOSITIONED. NO FURTHER SEIZURE ACTIVITY AT THIS TIME.
--- NOTE | 2019-10-13 23:00 | NUR ---
RESTING IN BED WITH EYES CLOSED AND RESPIRAITONS UNLABORED. NO FURTHER SEIZURE ACTIVITY.
--- NOTE | 2019-10-14 04:57 | NUR ---
RESTING QUIETLY. RESPIRAITONS UNLABORED. NO FURTHER SEIZURE ACTIVITY THIS SHIFT.
--- NOTE | 2019-10-14 08:00 | NUR ---
SHIFT ASSMT COMPLETED.
[2019-10-14 19:26] VITALS: BP 95/45
--- NOTE | 2019-10-14 19:44 | NUR ---
AWAKE AND ALERT. RESPRIATIONS UNLABORED. MEDICATED FOR PAIN. SEE MAR. LEFT ARM IS HURTING. REMAINS FLACCID. WARM BLANKET APPLIED TO LEFT ARM FOR HEAT THERAPY. DAUGHTER IN ROOM.
--- NOTE | 2019-10-15 01:36 | NUR ---
RESTLESS CONTINUES TO C/O PAIN IN ARMS AND LEGS. GABAPENTIN 300MG GIVEN PO. WILL CONTINUE TO MONITOR.
--- NOTE | 2019-10-15 06:09 | NUR ---
RESTING IN BED. BLOOD SUGAR 193. WAS MEDICATED EARLIER FOR PAIN SEE MAR.
--- NOTE | 2019-10-15 06:16 | NUR ---
NO SEIZURE ACTIVITY THIS SHIFT.
[2019-10-15 06:17] LABS: BASOPHILS 0.3 % (0-2); HEMATOCRIT 28.1 % (36.0-48.0); HEMOGLOBIN 8.7 g/dL (12-16); IMMATURE GRANULOCYTES 0.3 % (0-5); LYMPHOCYTES 33.8 % (15-50); MCH 27.9 pg (26.0-34.0); MCV 90.1 fL (80.0-100.0); MEAN PLATELET VOLUME 9.8 fL (7.4-10.4); MONOCYTES 8.8 % (2-11); NEUTROPHILS 52.8 % (40-80); RBC 3.12 10x6/uL (4.00-5.40); RDW 13.1 % (11.5-14.5); WBC 8.7 10x3/uL (4.8-10.8)
[2019-10-15 06:35] LABS: ANION GAP 13.8 mmol/L (8-16); CALCIUM 9.3 mg/dL (8.5-10.1); CARBON DIOXIDE 28.2 mmol/L (21.0-32.0); CREATININE - SERUM 0.9 mg/dL (0.6-1.3)
[2019-10-15 06:36] LABS: PHENYTOIN (DILANTIN) 14.9 ug/mL (10.0-20.0)
[2019-10-15 06:58] LABS: PLATELET COUNT 288 10x3/uL (130-400)
--- NOTE | 2019-10-15 07:35 | NUR ---
ALERT AND ORIENTED WITH CONFUSION /FORGETFUL AT TIMES. NO C/O PAIN. CL IN REACH.
[2019-10-15 07:52] VITALS: BP 97/56
[2019-10-15 08:27] VITALS: BP 137/65
--- NOTE | 2019-10-15 12:22 | NUR ---
PARTICIPATED IN THERAPY. SITTING IN CHAIR EATING LUNCH AT THIS TIME. CL IN REACH.
--- NOTE | 2019-10-15 12:56 | NUR ---
Nutrition Follow-up: Chart reviewed. Noted patient with recent seizures. Diet: Regular PO intake: ~44% average x last 4 meals. She states that her appetite is "alright" and that she "only likes certain things." She gave several food request. She is willing to get Glucerna with dinner tray. She states that she is diabetic and cannot have sweets. Last BM: 10/14/19> Wt: 171# (10/11/19) Meds noted: dilantin, HCTZ, metformin, methylprednisone Labs noted: POC Glu 193(H) Changed diet to No Concentrated Sweets. Glucerna once daily. Updated diet order with food preferences. Encouraged PO intake. RD following.
--- NOTE | 2019-10-15 14:28 | NUR ---
CLINICAL UPDATES FAXED TO AGUSTÍN ADAMSON AT [facility] , AUTH.#[id number] WITH CONFORMATION RECIEVED
--- NOTE | 2019-10-15 15:53 | NUR ---
NO CHANGE IN ASSESSMENT. FAMILY AT BS. PATIENT IS SLEEPING WITH EYES CLOSED AT THSI TIME.CL IN REACH.
--- NOTE | 2019-10-15 17:05 | NUR ---
SHOWER PER OT.
--- NOTE | 2019-10-15 19:15 | NUR ---
RECEIVED PT LYING IN BED AWAKE. ALERT AND ORIENTED X3. DENIES ANY NEEDS OR PAIN. NO SIGNS OF ACUTE DISTRESS NOTED. ANTERIOR HEAD YA INTACT INCISION WELL APPROXIMATED. LEFT HAND SL WITHOUT REDNESS OR SWELLING. DRESSING INTACT. CALL LIGHT AND WATER WITHIN REACH. FALL PRECAUTIONS IN PLACE. CPOC
[2019-10-15 20:40] VITALS: BP 105/51
--- NOTE | 2019-10-16 00:50 | NUR ---
PT LYING IN BED EYES CLOSED RESTING. RR EVEN AND UNLABORED. CALL LIGHT WITHIN REACH. FALL PRECAUTIONS IN PLACE. CPOC
--- NOTE | 2019-10-16 03:38 | NUR ---
PT LYING IN BED ON LEFT SIDE EYES CLOSED RESTING. RR EVEN AND UNLABORED. CALL LIGHT WITHIN REACH. FALL PRECAUTIONS IN PLACE. CPOC
--- NOTE | 2019-10-16 06:00 | NUR ---
INCONTINENCE CARE PROVIDED. LARGE URINE INCONTINENCY. BRIEF CHANGED. PT POSITIONED ON RIGHT SIDE. NO OTHER NEEDS VOICED. NO ACUTE CHANGES IN CONDITION THIS SHIFT. CALL LIGHT WITHIN REACH. FALL PRECAUTIONS IN PLACE. CPOC
[2019-10-16 07:41] VITALS: BP 99/47
--- NOTE | 2019-10-16 18:43 | NUR ---
RECEIVED PT LYING IN BED ALERT AND ORIENTED X4. DENIES ANY NEEDS OR PAIN. NO SIGNS OF ACUTE DISTRESS NOTED. CALL LIGHT WITHIN REACH. FALL PRECAUTIONS IN PLACE. CPOC
[2019-10-16 21:24] VITALS: BP 107/56
--- NOTE | 2019-10-17 02:05 | NUR ---
PT LYING IN BED ON RIGHT SIDE EYES CLOSED RESTING. RR EVEN AND UNLABORED. CALL LIGHT WITHIN REACH. FALL PRECAUTIONS IN PLACE. CPOC
[2019-10-17 06:46] LABS: BASOPHILS 0.2 % (0-2); EOSINOPHILS 0.3 % (0-7); HEMATOCRIT 28.1 % (36.0-48.0); HEMOGLOBIN 8.9 g/dL (12-16); IMMATURE GRANULOCYTES 0.4 % (0-5); LYMPHOCYTES 18.9 % (15-50); MCH 28.3 pg (26.0-34.0); MCHC 31.7 g/dL (31.0-37.0); MCV 89.2 fL (80.0-100.0); MEAN PLATELET VOLUME 9.8 fL (7.4-10.4); MONOCYTES 4.7 % (2-11); NEUTROPHILS 75.5 % (40-80); RBC 3.15 10x6/uL (4.00-5.40); RDW 13.1 % (11.5-14.5); WBC 10.1 10x3/uL (4.8-10.8)
[2019-10-17 06:52] LABS: PLATELET COUNT 360 10x3/uL (130-400)
[2019-10-17 06:56] LABS: ANION GAP 13.6 mmol/L (8-16); CALCIUM 9.5 mg/dL (8.5-10.1); CARBON DIOXIDE 26.4 mmol/L (21.0-32.0); CREATININE - SERUM 1.1 mg/dL (0.6-1.3); PHENYTOIN (DILANTIN) 19.6 ug/mL (10.0-20.0)
--- NOTE | 2019-10-17 07:57 | NUR ---
I have reviewed this patient and I concur with the Shift Assessment completed by the Licensed Practical Nurse today this shift.
--- NOTE | 2019-10-17 08:14 | NUR ---
RESTING IN BED WITH EYES CLOSED, NO S/S OF DISTRESS NOTED, RESP EVEN AND UNLABORED, C/L AND FLUIDS IN REACH.
[2019-10-17 08:24] VITALS: BP 90/46
--- NOTE | 2019-10-17 12:00 | NUR ---
SITTING UP IN W/C VISITING WITH FAMILY AND HAVING LUNCH, DENIES ANY NEEDS AT THIS TIME, C/L AND FLUIDS IN REACH.
--- NOTE | 2019-10-17 14:38 | NUR ---
CARE TEAM MEETING: FAMILY ATTENDED THE MEETING. THEIR QUESTIONS AND CONCERNS WERE ADDRESSED. HER TENATIVE DC DATE IS 10/26/19. WILL CONTINUE TO FOLLOW WITH PATIENT.
--- NOTE | 2019-10-17 16:31 | NUR ---
SITTING UP IN W/C VISITING WITH FAMILY, DENIES ANY NEEDS AT THIS TIME, C/L AND FLUIDS IN REACH.
[2019-10-17 20:07] VITALS: BP 118/52
--- NOTE | 2019-10-17 20:19 | NUR ---
AWAKE AND ALERT. RESTING IN BED WITH RESPRIAITONS UNLABORED. LEFT ARM FLACCID. BILATERAL WEAKNESS IN LEGS. CRANIOTOMY SITE TO HEAD NOTED WITH YA INTACT. SALINE LOCK INTACT TO LEFT HAND WITH NO SIGNS OF INFILTRATION. CALL LIGHT IN REACH.
--- NOTE | 2019-10-18 02:26 | NUR ---
SLEEPING WITH RESPIRATIONS UNLABORED. NO DISTRESS NOTED. CALL LIGHT IN REACH.
--- NOTE | 2019-10-18 05:17 | NUR ---
QUIET HOURS. NO ACUTE CHANGES IN CONDITION THIS SHIFT. RESTING IN BED WITH RESPIRAITONS UNLABORED.
[2019-10-18 06:32] LABS: BASOPHILS 0.3 % (0-2); EOSINOPHILS 3.6 % (0-7); HEMATOCRIT 28.4 % (36.0-48.0); IMMATURE GRANULOCYTES 0.5 % (0-5); LYMPHOCYTES 38.9 % (15-50); MCH 28.5 pg (26.0-34.0); MCHC 31.7 g/dL (31.0-37.0); MCV 89.9 fL (80.0-100.0); MEAN PLATELET VOLUME 10.6 fL (7.4-10.4); MONOCYTES 7.4 % (2-11); NEUTROPHILS 49.3 % (40-80); RBC 3.16 10x6/uL (4.00-5.40); RDW 13.2 % (11.5-14.5); WBC 12.6 10x3/uL (4.8-10.8)
[2019-10-18 06:34] LABS: PLATELET COUNT 280 10x3/uL (130-400)
[2019-10-18 06:44] LABS: ANION GAP 13.7 mmol/L (8-16); CALCIUM 9.6 mg/dL (8.5-10.1); CARBON DIOXIDE 25.9 mmol/L (21.0-32.0); CREATININE - SERUM 1.1 mg/dL (0.6-1.3)
[2019-10-18 06:45] LABS: POTASSIUM - SERUM 4.6 mmol/L (3.5-5.1)
[2019-10-18 08:00] VITALS: BP 110/52
--- NOTE | 2019-10-18 08:26 | NUR ---
PT RESTING IN BED WITH EYES OPEN CALL LIGHT IN REACH WILL MONITER
--- NOTE | 2019-10-18 12:00 | NUR ---
I have reviewed this patient and I concur with the Shift Assessment completed by the Licensed Practical Nurse today this shift.
--- NOTE | 2019-10-18 17:47 | NUR ---
PT RESTING IN BED WITH EYES OPEN CALL LIGHT IN REACH WILL MONITER
--- NOTE | 2019-10-18 19:44 | NUR ---
AWAKE AND ALERT. RESTING IN BED WITH RESPIRAITONS UNLABORED. LEFT ARM FLACCID BUT C/O IT ITCHING. NO ACUTE DISTRESS NOTED. CALL LIGHT IN REACH.
[2019-10-18 21:19] VITALS: BP 134/38
--- NOTE | 2019-10-19 01:07 | NUR ---
SLEEPING WITH RESPIRAITONS UNLABORED. NO DISTRESS NOTED.
--- NOTE | 2019-10-19 06:39 | NUR ---
QUIET HOURS. NO ACUTE CHANGES IN CONDITION THIS SHIFT. SLEPT IN LONG INTERVALS THIS SHIFT. NO DISTRESS NOTED.
[2019-10-19 07:45] VITALS: BP 139/64
--- NOTE | 2019-10-19 07:45 | NUR ---
AWAKE,DENIES NEEDS.VS TAKEN.ASSESSMENT COMPLETED.CL IN EASY REACH,BED IN LOW POSITION.CONTINUE WITH CURRENT PLAN OF CARE.
--- NOTE | 2019-10-19 12:52 | NUR ---
Nutrition Follow-up: Diet: Regular No Concentrated Sweets PO intake: ~79% average x last 6 meals. She reports that her appetite is "alright." She states that she doesn't eat a lot typically. She would like strawberry Ensure rather than vanilla Glucerna. Last BM: 10/14/19. Wt: 171# (10/11/19) Meds noted: methylprednisone, dilantin, HCTZ, metformin Labs noted: POC Glu 170(H) Noted blood sugars have been running high. This is likely 2/2 being on steroids; however, will change diet to consistent CHO to see if that helps any. Due to Glucerna having almost half the amount of CHO that Ensure does, will have to keep patient on Glucerna for now. However, she is eating well and appears to be meeting estimated nutrition needs via diet alone. RD following.
--- NOTE | 2019-10-19 19:13 | NUR ---
RECEIVED PT LYING IN BED AWAKE. ALERT AND ORIENTED X3. DENIES ANY NEEDS OR PAIN. NO SIGNS OF ACUTE DISTRESS NOTED. SCALP YA INTACT. CALL LIGHT AND WATER WITHIN REACH. FALL PRECAUTIONS IN PLACE. CPOC
[2019-10-19 22:02] VITALS: BP 105/52
--- NOTE | 2019-10-20 01:07 | NUR ---
PT LYING IN BED ON LEFT SIDE EYES CLOSED RESTING. RR EVEN AND UNLABORED. WILL CONTINUE TO MONITOR
--- NOTE | 2019-10-20 04:01 | NUR ---
PT LYING IN BED EYES CLOSED RESTING. RR EVEN AND UNLABORED. BRIEF DRY. CALL LIGHT WITHIN REACH. WILL CONTINUE TO MONTIOR
--- NOTE | 2019-10-20 08:00 | NUR ---
SITTING UP IN BED EATING BREAKFAST, DENIES ANY NEEDS AT THIS TIME, C/L AND FLUIDS IN REACH.
[2019-10-20 09:54] VITALS: BP 114/56
--- NOTE | 2019-10-20 12:00 | NUR ---
SITTING UP IN BED, DENIES ANY NEEDS AT THIS TIME, C/L AND FLUIDS IN REACH.
--- NOTE | 2019-10-20 16:12 | NUR ---
RESTING IN BED WATCHING TV, DENIES ANY NEEDS AT THIS TIME, C/L AND FLUIDS IN REACH.
--- NOTE | 2019-10-20 19:12 | NUR ---
RECEIVED PT LYING IN BED VISITING WITH DAUGHTER. DENIES ANY NEEDS OR PAIN. NO SIGNS OF ACUTE DISTRESS NOTED. ALERT AND ORIENTED X4. CALL LIGHT AND WATER WITHIN REACH. FALL PRECAUTIONS IN PLACE. CPOC
[2019-10-20 20:34] VITALS: BP 116/54
--- NOTE | 2019-10-20 23:07 | NUR ---
INCONTINENCE CARE PROVIDED. LARGE URINE INCONTINENCE. NO OTHER NEEDS VOICED. CALL LIGHT WITHIN REACH. FALL PRECAUTIONS IN PLACE. CPOC
--- NOTE | 2019-10-21 01:16 | NUR ---
PT LYING IN BED EYES CLOSED RESTING QUIETLY. RR EVEN AND UNLABORED. CALL LIGHT WITHIN REACH. FALL PRECAUTIONS IN PLACE. WILL CONTINUE TO MONITOR
--- NOTE | 2019-10-21 03:30 | NUR ---
PT LYING IN BED EYES CLOSED RESTING QUIETLY. NO SIGNS OF ACUTE DISTRESS NOTED. CALL LIGHT WITHIN REACH. FALL PRECAUTIONS IN PLACE. CPOC
--- NOTE | 2019-10-21 06:28 | NUR ---
PT LYING IN BED ON LEFT SIDE EYES CLOSED RESTING. NO ACUTE CHANGES IN CONDITION NOTED THIS SHIFT. CALL LIGHT WITHIN REACH. FALL PRECAUTIONS IN PLACE. CPOC
--- NOTE | 2019-10-21 08:07 | NUR ---
SITTING UP IN BED EATING BREAKFAST, DENIES ANY NEEDS AT THIS TIME, C/L AND FLUIDS IN REACH.
[2019-10-21 08:08] VITALS: BP 105/51
--- NOTE | 2019-10-21 12:01 | NUR ---
RESTING IN BED WITH EYES CLOSED, NO S/S OF DISTRESS NOTED, RESP EVEN AND UNLABORED, C/L AND FLUIDS IN REACH.
--- NOTE | 2019-10-21 16:08 | NUR ---
RESTING IN BED VISITING WITH DAUGHTER, DENIES ANY NEEDS AT THIS TIME, C/L AND FLUIDS IN REACH.
[2019-10-21 21:04] VITALS: BP 109/54
--- NOTE | 2019-10-21 21:12 | NUR ---
RECEIVED PT LYING IN BED ON LEFT SIDE EYES CLOSED RESTING. NO SIGNS OF ACUTE DISTRESS NOTED. VS STABLE. SHIFT ASSESSMENT COMPLETE. CALL LIGHT WITHIN REACH. FALL PRECAUTIONS IN PLACE. CPOC
--- NOTE | 2019-10-22 02:49 | NUR ---
PT LYING IN BED ON LEFT SIDE EYES CLOSED RESTING. RR EVEN AND UNLABORED. CALL LIGHT WITHIN REACH. FALL PRECAUTIONS IN PLACE. CPOC
[2019-10-22 07:14] LABS: BASOPHILS 0.6 % (0-2); EOSINOPHILS 4.6 % (0-7); HEMATOCRIT 29.7 % (36.0-48.0); HEMOGLOBIN 9.2 g/dL (12-16); IMMATURE GRANULOCYTES 0.3 % (0-5); LYMPHOCYTES 24.6 % (15-50); MCH 27.8 pg (26.0-34.0); MCV 89.7 fL (80.0-100.0); MEAN PLATELET VOLUME 9.7 fL (7.4-10.4); NEUTROPHILS 57.9 % (40-80); PLATELET COUNT 349 10x3/uL (130-400); RBC 3.31 10x6/uL (4.00-5.40); RDW 13.3 % (11.5-14.5); WBC 8.7 10x3/uL (4.8-10.8)
[2019-10-22 07:30] LABS: ANION GAP 10.2 mmol/L (8-16); CALCIUM 9.4 mg/dL (8.5-10.1); CARBON DIOXIDE 26.8 mmol/L (21.0-32.0); CREATININE - SERUM 1.1 mg/dL (0.6-1.3)
[2019-10-22 08:00] VITALS: BP 102/40
--- NOTE | 2019-10-22 08:02 | NUR ---
SITTING UP IN BED EATING BREAKFAST, DENIES ANY NEEDS AT THIS TIME, C/L AND FLUIDS IN REACH.
--- NOTE | 2019-10-22 12:15 | NUR ---
SITTING UP IN W/C EATING LUNCH, DENIES ANY NEEDS AT THIS TIME, C/L AND FLUIDS IN REACH.
--- NOTE | 2019-10-22 13:58 | NUR ---
I have reviewed this patient and I concur with the Shift Assessment completed by the Licensed Practical Nurse today this shift.
--- NOTE | 2019-10-22 16:17 | NUR ---
RESTING IN BED WITH EYES CLOSED, RESP EVEN AND UNLABORED, NO S/S OF DISTRESS NOTED, C/L AND FLUIDS IN REACH.
--- NOTE | 2019-10-22 19:00 | NUR ---
RECEIVED PT LYING IN BED SUPINE EYES CLOSED RESTING. EASILY AROUSED WITH VERBAL STIMULI. DENIES ANY NEEDS OR PAIN. NO SIGNS OF ACUTE DISTRESS NOTED. CALL LIGHT WITHIN REACH. FALL PRECAUTIONS IN PLACE. CPOC
[2019-10-22 19:27] VITALS: BP 109/57
--- NOTE | 2019-10-22 23:15 | NUR ---
PT LYING IN BED ON LEFT SIDE EYES CLOSED RESTING. NO SIGNS OF ACUTE DISTRESS NOTED. CALL LIGHT WITHIN REACH. WILL CONTINUE TO MONITOR
--- NOTE | 2019-10-23 01:20 | NUR ---
PT LYING IN BED ON RIGHT SIDE EYES CLOSED RESTING. RR EVEN AND UNLABORED. WILL CONTINUE TO MONITOR
--- NOTE | 2019-10-23 04:27 | NUR ---
PT LYING IN BED SUPINE EYES CLOSED RESTING. NO ACUTE CHANGES IN CONDITION THIS SHIFT . CALL LIGHT WITHIN REACH. WILL CONTINUE TO MONITOR
[2019-10-23 07:30] VITALS: BP 120/69
--- NOTE | 2019-10-23 07:59 | NUR ---
SITTING UP IN BED EATING BREAKFAST, DENIES ANY NEEDS AT THIS TIME, C/L AND FLUIDS IN REACH.
--- NOTE | 2019-10-23 12:02 | NUR ---
SITTING UP IN W/C, DENIES ANY NEEDS AT THIS TIME, C/L AND FLUIDS IN REACH.
--- NOTE | 2019-10-23 12:48 | NUR ---
Nutrition Follow-up: Diet: Diabetic PO intake: ~56% average x last 9 meals Last BM: 10/22/19. Wt: 171# (10/11/19) Meds noted: methylprednisone, dilantin, HCTZ, metformin Labs noted: POC Glu 193(H) Recommend continue current diet, encourage PO intake. Offer oral nutrition supplements. RD following.
--- NOTE | 2019-10-23 14:58 | NUR ---
ORDER RECIEVED FROM APRIL HERRERA RN FROM DR HALE TO DC YA TO CRAINIOTOMY INCISION.
--- NOTE | 2019-10-23 15:26 | NUR ---
PT LYING IN BED RESTING AT THIS TIME. NO S/S OF DISTRESS. CALL LIGHT IN REACH. KENDAR
--- NOTE | 2019-10-23 16:03 | NUR ---
YA ON SCALP REMOVED. NO DRAINAGE OR REDNESS FROM INCISION SITE. INCISION CLEAN AND DRY. DENIES NEEDS. KDAUBERRN
--- NOTE | 2019-10-23 16:17 | NUR ---
CLINICAL UPDATES FAXED TO AGUST[facility]AM[facility] AT [facility] , , AUTH. # [id number] WITH RECOMMENDATIONS TO DC TO A SNF. CONFORMATION OF FAX RECIEVED. WILL CONTINUE TO FOLLOW WITH PATIENT.
--- NOTE | 2019-10-23 19:00 | NUR ---
RECEIVED PT LYING IN BED AWAKE. ALERT AND ORIENTED X4. DENIES ANY NEEDS OR PAIN. NO SIGNS OF ACUTE DISTRESS NOTED. CALL LIGHT WITHIN REACH. FALL PRECAUTIONS IN PLACE. CPOC
[2019-10-23 21:07] VITALS: BP 124/65
--- NOTE | 2019-10-24 00:24 | NUR ---
PT LYING IN BED EYES CLOSED RESTING. RR EVEN AND UNLABORED. CALL LIGHT WITHIN REACH. FALL PRECAUTIONS IN PLACE. CPOC
--- NOTE | 2019-10-24 04:50 | NUR ---
INCONTINENCE CARE PROVIDED. MODERATE URINE INCONTINENCE. DENIES ANY PAIN. NO OTHER NEEDS VOICED. CALL LIGTH WITHIN REACH. FALL PRECAUTIONS IN PLACE. CPOC
[2019-10-24 06:40] LABS: BASOPHILS 0.5 % (0-2); EOSINOPHILS 5.3 % (0-7); HEMATOCRIT 32.3 % (36.0-48.0); HEMOGLOBIN 10.2 g/dL (12-16); IMMATURE GRANULOCYTES 0.4 % (0-5); LYMPHOCYTES 27.7 % (15-50); MCHC 31.6 g/dL (31.0-37.0); MCV 88.7 fL (80.0-100.0); NEUTROPHILS 50.1 % (40-80); PLATELET COUNT 299 10x3/uL (130-400); RBC 3.64 10x6/uL (4.00-5.40); RDW 12.9 % (11.5-14.5)
[2019-10-24 06:47] LABS: WBC 5.6 10x3/uL (4.8-10.8)
[2019-10-24 06:48] LABS: ANION GAP 12.9 mmol/L (8-16); CALCIUM 10.5 mg/dL (8.5-10.1); CREATININE - SERUM 1.2 mg/dL (0.6-1.3); POTASSIUM - SERUM 4.9 mmol/L (3.5-5.1)
--- NOTE | 2019-10-24 08:00 | NUR ---
PT RESTING IN BED WITH EYES OPEN CALL LIGHT IN REACH WILL MONITER
[2019-10-24 08:08] VITALS: BP 118/64
--- NOTE | 2019-10-24 08:13 | NUR ---
I have reviewed this patient and I concur with the Shift Assessment completed by the Licensed Practical Nurse today this shift.
[2019-10-24] MEDS ORDERED: HYDROCODON-ACE1 EAC7 PO (12:46)
--- NOTE | 2019-10-24 14:40 | NUR ---
CARE TEAM MEETING: DAUGHTER ATTENDED THE MEETING. SHE REQUEST THAT AT THIS TIME HER MOTHER BE DISCHARGED TO A REHAB IN [place] DUE TO NO FAMILY ABLE TO HELP MOTHER AT THIS TIME. REFERRAL HAS BEEN FAXED TO [facility] IN [place] FOR POSSIBLE ASMISSION. TENATIVE DISCHARGE DATE IS 10/26/19. WILL CONTINUE TO FOLLOW WITH PATIENT.
--- NOTE | 2019-10-24 18:09 | NUR ---
PT RESTING IN BED WITH EYES OPEN CALL LIGHT IN REACH NO PROBLEMS WILL MONITER
--- NOTE | 2019-10-24 18:10 | NUR ---
PT RESTING IN BED WITH EYES CLOSED REFUSED SUPPER CALL LIGHT IN REACH WILL MONITER
--- NOTE | 2019-10-24 19:44 | NUR ---
AWAKE AND ALERT. RESTING IN BED WITH RESPRIATIONS UNLABORED. CRAINIOTOMY INCISION INTACT. NO ACUTE DISTRESS NOTED. CALL LIGHT IN REACH.
[2019-10-24 21:15] VITALS: BP 123/68
--- NOTE | 2019-10-25 01:30 | NUR ---
MEDICATED FOR CONTINUED C/O ARM PAIN. WARM SHEET APPLIED TO ARM ALSO FOR COMFORT.
--- NOTE | 2019-10-25 07:00 | NUR ---
QUIET HOURS. NO ACUTE CHANGES IN CONDITION THIS SHIFT. NO DISTRESS NOTED.
[2019-10-25 08:00] VITALS: BP 126/51
--- NOTE | 2019-10-25 08:00 | NUR ---
PT RESTING IN BED WITH EYES OPEN CALL LIGHT IN REACH WILL MONITER
--- NOTE | 2019-10-25 15:55 | NUR ---
[facility] IS NO T CONTRACTED WITH PATIENT INSURANCE. A REFERAL TO [facility] IN [facility] HAS BEEN FAXED FOR POSSIBLE ADMISSION. WILL CONTINUE TO FOLLOW WITH PATIENT.WILL NOTIFIY DAUGHTER.
--- NOTE | 2019-10-25 17:10 | NUR ---
DR FRIEND NOTIFED BY VOICE MAIL PTS BLOOD SUGAR WAS [phone]
--- NOTE | 2019-10-25 17:34 | NUR ---
PT RESTING IN BED WITH EYES OPEN CALL LIGHT IN REACH WILL MONITER
--- NOTE | 2019-10-25 20:01 | NUR ---
AWAKE AND ALERT. RESTING IN BED WITH RESPRIAITONS UNLABORED. NO ACUTE DISTRESS NOTED. MOVES LEFT ARM SLIGHTLY BUT CONTINUE TO HAVE SIGNIFICANT WEAKNESS.
[2019-10-25 21:07] VITALS: BP 137/61
--- NOTE | 2019-10-26 01:14 | NUR ---
SLEEPING WITH RESPIRATIONS UNLABORED. NO DISTRESS NOTED.
--- NOTE | 2019-10-26 05:33 | NUR ---
QUIET HOURS. NO ACUTE CHANGES IN CONDITION THIS SHIFT. RESTING IN BED WITH NO DISTRESS NOTED.
[2019-10-26 08:28] VITALS: BP 146/67
--- NOTE | 2019-10-26 09:23 | NUR ---
PT RESTING IN BED WITH EYES OPEN CALL LIGHT IN REACH WILL MONITER
--- NOTE | 2019-10-26 11:24 | NUR ---
RECIEVED CALL FROM [facility] AND THEY WILL ACCEPT PATIENT ON 10/29/19. FACILITY WILL CALL TUESDAY WITH A MANAGER SECURITY TIME. WILL CONTINUE TO FOLLOW WITH PATIENT.
--- NOTE | 2019-10-26 13:15 | NUR ---
Nutrition Follow-up: Diet: Diabetic PO intake: ~25% x 3 meals yesterday. Spoke with patient at lunch time. She states that her appetite is "okay" but that she does not like the foods that our kitchen serves her. She is filling out her menu and making special request. She is willing to try Glucerna with meals. Last BM: 10/22/19. Wt: 171# (10/11/19) Meds noted: dilantin, HCTZ, metformin. Labs noted: POC Glu 224(H) Recommend continue current diet. Encouraged patient to continue ordering special request on menu. Will add glucerna TID. RD following.
--- NOTE | 2019-10-26 17:09 | NUR ---
PT RESTING IN BED WITH EYES OPEN CALL LIGHT IN REACH WILL MONITER
[2019-10-26 19:38] VITALS: BP 116/54
--- NOTE | 2019-10-26 19:54 | NUR ---
AWAKE AND ALERT. RESTING IN BED WITH RESPIRATIONS UNLABORED. LEFT SIDED WEAKNESS NOTED. NO ACUTE DISTRESS NOTED. CALL LIGHT IN REACH.
--- NOTE | 2019-10-27 01:37 | NUR ---
SLEEPIING IN BED WITH RESPIRAITONS UNLABORED. NO DISTRESS NOTED.
--- NOTE | 2019-10-27 08:00 | NUR ---
SITTING UP IN BED EATING BREAKFAST, DENIES ANY NEEDS AT THIS TIME, C/L AND FLUIDS IN REACH.
[2019-10-27 10:06] VITALS: BP 95/57
--- NOTE | 2019-10-27 12:11 | NUR ---
SITTING UP IN BED EATING LUNCH, DENIES ANY NEEDS AT THIS TIME, C/L AND FLUIDS IN REACH.
--- NOTE | 2019-10-27 14:00 | NUR ---
I have reviewed this patient and I concur with the Shift Assessment completed by the Licensed Practical Nurse today this shift.
--- NOTE | 2019-10-27 15:58 | NUR ---
SITTING UP IN W/C WATCHING TV, DENIES ANY NEEDS AT THIS TIME, C/L AND FLUIDS IN REACH.
[2019-10-27 19:10] VITALS: BP 100/61
--- NOTE | 2019-10-27 19:10 | NUR ---
RECEIVED PT LYING IN BED ON RIGHT SIDE. ALERT AND ORIENTED X4. DENIES ANY PAIN OR NEEDS. NO SIGNS OF ACUTE DISTRESS NOTED. VS STABLE. SHIFT ASSESSMENT COMPLETE. CALL LIGHT WITHIN REACH. FALL PRECAUTIONS IN PLACE. CPOC
--- NOTE | 2019-10-27 23:13 | NUR ---
PT LYING IN BED EYES CLOSED RESTING. RR EVEN AND UNLABORED. CALL LIGHT WITHIN REACH. FALL PRECAUTIONS IN PLACE. CPOC
--- NOTE | 2019-10-28 01:21 | NUR ---
PT LYING IN BED EYES CLOSED RESTING. RR EVEN AND UNLABORED. CALL LIGHT WITHIN REACH. WILL CONTINUE TO MONITOR
--- NOTE | 2019-10-28 05:15 | NUR ---
INCONTINENCE CARE PROVIDED. LARGE URINE INCONTINENCE. COMPLETE LINEN CHANGE AND BEDBATH GIVEN. DENIES ANY NEEDS OR PAIN. NO ACUTE CHANGES IN CONDITION NOTED THIS SHIFT. CALL LIGHT WITHIN REACH. FALL PRECAUTIONS IN PLACE. CPOC
--- NOTE | 2019-10-28 07:51 | NUR ---
SITTING UP IN BED EATING BREAKFAST, DENIES ANY NEEDS AT THIS TIME, C/L AND FLUIDS IN REACH.
[2019-10-28 08:26] VITALS: BP 116/58
--- NOTE | 2019-10-28 12:18 | NUR ---
SITTING UP IN BED EATING LUNDH, DENIES ANY NEEDS AT THIS TIME, C/L AND FLUIDS IN REACH.
--- NOTE | 2019-10-28 16:00 | NUR ---
I have reviewed this patient and I concur with the Shift Assessment completed by the Licensed Practical Nurse today this shift.
--- NOTE | 2019-10-28 16:05 | NUR ---
UP IN W/C WATCHING TV, DENIES ANY NEEDS AT THIS TIME, C/L AND FLUIDS IN REACH.
[2019-10-28 19:15] VITALS: BP 99/52
--- NOTE | 2019-10-28 19:15 | NUR ---
RECEIVED PT SITTING UP IN W/C. ALERT AND ORIENTED X4. DENIES ANY NEEDS OR PAIN. NO SIGNS OF ACUTE DISTRESS NOTED. VS STABLE. SHIFT ASSESSMENT COMPLETE. CALL LIGHT AND WATER WITHIN REACH. FALL PRECAUTIONS IN PLACE. CPOC
--- NOTE | 2019-10-28 23:31 | NUR ---
PT LYING IN BED EYES CLOSED RESTING QUIETLY. RR EVEN AND UNLABORED. CALL LIGTH WITHIN REACH. FALL PRECAUTIONS IN PLACE. CPOC
--- NOTE | 2019-10-29 01:49 | NUR ---
PT LYING IN BED SUPINE EYES CLOSED RESTING QUIETLY. BRIEF CLEAN AND DRY. NO SIGNS OF ACUTE DISTRESS NOTED. CALL LIGHT WITHIN REACH. WILL CONTINUE TO MONITOR
--- NOTE | 2019-10-29 03:33 | NUR ---
PT LYING IN BED EYES CLOSED RESTING. RR EVEN AND UNLABORED. CALL LIGHT WITHIN REACH. WILL CONTINUE TO MONITOR
--- NOTE | 2019-10-29 06:00 | NUR ---
BEDBATH PROVIDED. COMPLETE LINEN CHANGE. ORAL CARE DONE. DENIES ANY OTHER NEEDS. NO ACUTE CHANGES NOTED THIS SHIFT. CALL LIGHT WITHIN REACH. FALL PRECAUTIONS IN PLACE. CPOC
[2019-10-29 07:23] LABS: ANION GAP 10.9 mmol/L (8-16); CALCIUM 9.1 mg/dL (8.5-10.1); CARBON DIOXIDE 27.5 mmol/L (21.0-32.0); CREATININE - SERUM 1.2 mg/dL (0.6-1.3); POTASSIUM - SERUM 4.4 mmol/L (3.5-5.1)
[2019-10-29 07:35] LABS: BASOPHILS 0.2 % (0-2); EOSINOPHILS 11.8 % (0-7); HEMATOCRIT 30.3 % (36.0-48.0); HEMOGLOBIN 9.8 g/dL (12-16); IMMATURE GRANULOCYTES 0.2 % (0-5); LYMPHOCYTES 29.8 % (15-50); MCH 28.4 pg (26.0-34.0); MCHC 32.3 g/dL (31.0-37.0); MCV 87.8 fL (80.0-100.0); MEAN PLATELET VOLUME 10.2 fL (7.4-10.4); MONOCYTES 11.4 % (2-11); NEUTROPHILS 46.6 % (40-80); RBC 3.45 10x6/uL (4.00-5.40); RDW 12.8 % (11.5-14.5); WBC 5.1 10x3/uL (4.8-10.8)
[2019-10-29 07:45] LABS: PLATELET COUNT 186 10x3/uL (130-400)
--- NOTE | 2019-10-29 08:07 | NUR ---
SITTING UP IN BED EATING BREAKFAST, DENIES ANY NEEDS AT THIS TIME, C/L AND FLUIDS IN REACH.
[2019-10-29 08:11] VITALS: BP 118/66
[2019-10-29] MEDS ORDERED: DILANTIN100 MG PO (09:45)
[2019-10-29] MEDS ORDERED: MELATONIN 3 MG1 TAB PO (09:45)
[2019-10-29] MEDS ORDERED: HYDROCHLOROTHIA25 MG PO (09:46)
[2019-10-29] MEDS ORDERED: LISINOPRIL10 MG PO (09:46)
--- NOTE | 2019-10-29 10:30 | NUR ---
REPORT CALLED INTO [facility] WITH [facility].
--- NOTE | 2019-10-29 12:00 | NUR ---
UP IN W/C EATING LUNCH, DENIES ANY NEEDS AT THIS TIME, C/L AND FLUIDS IN REACH.
--- NOTE | 2019-10-29 12:43 | NUR ---
PATIENT DISCHARGING TO [facility] AND WILL TRANSPORT VIA FACILITY VAN. NO HOME HEALTH OR DME NEEDED AT THIS TIME. AN APPOINTMENT WITH DR. CHOWDARY AMD DR. MAURICIO WILL BE MADE AT TIME OF DISCHARGE FROM THE FACILITY. IRENE SIGNED, IMM SERVED AND EXPLAINED. NO COMPARE DATA REVIEWED THIS FACILITY HAS CONTRACT WITH PATIENT INSURANCE. DR. HALE 11/14/19 @ 3:30. DISCHARGE INSTRUCTIONS FAXED TO PCP, SNF , [facility] WITH PATIENT INSURANCE [phone], AUTH. #[id number], CONFORMATION OF FAX RECIEVED AND REVIEWED WITH PATIENT PER PRIMARY NURSE. DAUGHTER HAS BEEN NOTIFIED.
--- NOTE | 2019-10-29 16:00 | NUR ---
RESTING IN BED WITH EYES CLOSED, NO S/S OF DISTRESS, RESP EVEN AND UNLABORED, C/L AND FLUIDS IN REACH.
[2019-10-29 19:49] VITALS: BP 95/53
--- NOTE | 2019-10-29 19:56 | NUR ---
AWAKE AND RESTING IN BED WITH REPSPIRATIONS UNLABORED. STATES SHE DOESNT FEEL GOOD WITH ARM HURTING. LOW GRADE TEMPERATURE OF 99.1 LEFT SIDED WEAKNESS NOTED. WILL MONITOR.
--- NOTE | 2019-10-30 01:10 | NUR ---
SLEEPING WITH RESPIRATIONS UNLABORED. NO DISTRESS NOTED. CALL LIGHT IN REACH.
--- NOTE | 2019-10-30 05:33 | NUR ---
AWAKE AND ALERT. INCONTINENCE CARE GIVEN. TURNED AND REPOSITIONED. CALL LIGHT IN REACH.
--- NOTE | 2019-10-30 08:00 | NUR ---
PT RESTING IN BED EYES OPEN CALL LIGHT IN REACH WILL MONITER
--- NOTE | 2019-10-30 10:07 | NUR ---
PT DISCHARGED TO [facility] VIA WHEELCHAIR WITH DRIVERS. REPORT CALLED YESTERDAY TO FACILITY DISCHARGE SUMMARY AND MEDS SENT WITH PT TOLERATED WELL
== END 2019-10-30 10:09 | DRG 950 ==
LOC: D.REHAB 17:03
PROVIDERS: ADMIT Emergency Medicine; ATTEND Emergency Medicine
DX: Z48.811 Encounter for surgical aftercare following surgery on the nervous system (principal); D32.9 Benign neoplasm of meninges, unspecified; R53.1 Weakness; M25.512 Pain in left shoulder; M75.100 Unspecified rotator cuff tear or rupture of unspecified shoulder, not specified as traumatic; K21.9 Gastro-esophageal reflux disease without esophagitis; R56.9 Unspecified convulsions; M13.819 Other specified arthritis, unspecified shoulder; R52 Pain, unspecified